=== PATIENT | male | born 1950 | race African-American/Black ===

== ENCOUNTER 2020-05-18 13:58 | Inpatient (IN) ==
[2020-05-18] MEDS ORDERED: ONDANSETRON 4 MG/2 ML VIAL IV PRN (14:31)
[2020-05-18] MEDS: PIPERACILLIN/TAZOBACTAM 3,375 MG in SODIUM CHLORIDE 0.9% 100 ML IV SCH (17:03)
[2020-05-18] MEDS: SODIUM CHLORIDE 0.9% 1,000 ML IV SCH (17:03)
[2020-05-19] MEDS: ACETAMINOPHEN 325 MG TABLET PO PRN (00:10)
[2020-05-19] MEDS: PIPERACILLIN/TAZOBACTAM 3,375 MG in SODIUM CHLORIDE 0.9% 100 ML IV SCH ×3 (00:10→16:20)
[2020-05-19] MEDS: HYDROmorphone 2 MG/1 ML VIAL IV PRN (05:52)
[2020-05-19] MEDS ORDERED: cefOXitin 2,000 MG in SYRINGE 1 EACH IV ONE (06:00)
[2020-05-19 07:15] LABS: Basophils % 0.2 % (0.0-0.8); Hematocrit 44.3 VOL% (42.0-52.0); Hemoglobin 14.6 GM/DL (14.0-18.0); Immature Granulocytes % 0.7 %; Immature Granulocytes Absolute 0.11 #; Lymphocytes # 0.7 10*3/uL (1.4-4.0); Lymphocytes % 4.4 % (21.2-54.2); Mean Corpuscular Volume 89.1 FL (87-102); Mean Platelet Volume 11.8 FL (9.6-12.0); Monocytes % 9.6 % (1.7-12.7); Neutrophils % 85.1 % (38.7-73.9); Platelet Count 141 T/CUMM (130-400); Red Blood Count 4.97 MC/CUMM (3.8-5.5); Red Cell Distribution Width 13.8 % (9.3-17.3); White Blood Count 16.2 T/CUMM (4-12)
[2020-05-19 07:34] LABS: Eosinophils 1 % (0-10); Hypochromasia Slight; Lymphocytes 6 % (20-55); Microcytosis Slight; Platelet Estimate Adequate; Segmented Neutrophils 85 % (50-85); Total Cells Counted 100
[2020-05-19] MEDS ORDERED: TISSUE ADHESIVE 1 EACH APPLICATOR TOP ONE (07:40)
[2020-05-19] MEDS ORDERED: LIDOCAINE 1% 20 ML VIAL ONE (07:40)
[2020-05-19] MEDS ORDERED: BUPIVACAINE MPF 0.25% 30 ML VIAL ONE (07:40)
[2020-05-19] MEDS: SODIUM CHLORIDE 0.9% 1,000 ML IV SCH (07:40)
[2020-05-19 07:42] LABS: Albumin 3.5 G/DL (3.4-5.0); Bilirubin,Total 1.1 MG/DL (0.2-1.0); Calcium 8.8 MG/DL (8.5-10.1); Potassium 3.8 MMOL/L (3.5-5.1); Total Protein 7.8 G/DL (6.4-8.3)
[2020-05-19] MEDS ORDERED: DIAZEPAM 5 MG TABLET PO ONE (07:47)
[2020-05-19] MEDS ORDERED: MIDAZOLAM 2 MG/2 ML VIAL ONE (07:52)
[2020-05-19] MEDS ORDERED: LIDOCAINE 2% 5 ML VIAL ONE (07:52)
[2020-05-19] MEDS ORDERED: fentaNYL 100 MCG/2 ML VIAL ONE (07:52)
[2020-05-19] MEDS ORDERED: ROCURONIUM 50 MG/5 ML VIAL IV ONE (07:52)
[2020-05-19] MEDS ORDERED: propofoL 200 MG/20 ML VIAL IV ONE (07:52)
[2020-05-19] MEDS ORDERED: SEVOFLURANE 1 UNIT/15 MINUTE INH ONE (09:42)
[2020-05-19] MEDS ORDERED: MEPERIDINE 25 MG/1 ML VIAL IV PRN (09:50)
[2020-05-19] MEDS ORDERED: ONDANSETRON 4 MG/2 ML VIAL IV PRN (09:50)
[2020-05-19] MEDS ORDERED: diphenhydrAMINE 50 MG/1 ML VIAL IV PRN (09:50)
[2020-05-19] MEDS ORDERED: HYDROmorphone 2 MG/1 ML VIAL IV PRN (09:50)
[2020-05-19] MEDS ORDERED: PROMETHAZINE INJ 25 MG in SODIUM CHLORIDE 0.9% 50 ML IV PRN (09:50)
[2020-05-19] MEDS: PANTOPRAZOLE 40 MG VIAL IV SCH (10:27)
[2020-05-19] MEDS: LACTATED RINGERS 1,000 ML IV SCH (10:29)
[2020-05-19] MEDS ORDERED: KETOROLAC 30 MG/1 ML VIAL ONE (11:56)
[2020-05-19] MEDS ORDERED: NEOSTIGMINE 10 MG/10 ML VIAL ONE (11:56)
[2020-05-19] MEDS ORDERED: ONDANSETRON 4 MG/2 ML VIAL ONE (11:56)
[2020-05-19] MEDS ORDERED: GLYCOPYRROLATE 0.4 MG/2 ML VIAL ONE (11:56)
[2020-05-19] MEDS: OMEGA 3 ACID ETHYL ESTERS 1 GM CAPSULE PO SCH (21:23)
[2020-05-20] MEDS: LACTATED RINGERS 1,000 ML IV SCH ×3 (00:03→17:18)
[2020-05-20] MEDS: PIPERACILLIN/TAZOBACTAM 3,375 MG in SODIUM CHLORIDE 0.9% 100 ML IV SCH ×3 (00:46→17:15)
[2020-05-20 05:33] LABS: Basophils % 0.2 % (0.0-0.8); Hemoglobin 14.9 GM/DL (14.0-18.0); Immature Granulocytes % 0.5 %; Lymphocytes # 0.8 10*3/uL (1.4-4.0); Lymphocytes % 4.3 % (21.2-54.2); Mean Corpuscular HGB Conc 32.4 GM/DL (32-36); Mean Corpuscular Volume 91.1 FL (87-102); Mean Platelet Volume 11.6 FL (9.6-12.0); Monocytes % 7.3 % (1.7-12.7); Neutrophils % 87.7 % (38.7-73.9); Platelet Count 149 T/CUMM (130-400); Red Blood Count 5.05 MC/CUMM (3.8-5.5); Red Cell Distribution Width 13.9 % (9.3-17.3); White Blood Count 19.1 T/CUMM (4-12)
[2020-05-20 06:09] LABS: Albumin 3.1 G/DL (3.4-5.0); Bilirubin,Total 1.3 MG/DL (0.2-1.0); Calcium 9.3 MG/DL (8.5-10.1); Osmolality,Calculated 277.8 MOS/KG (273-304); Potassium 4.1 MMOL/L (3.5-5.1); Total Protein 7.8 G/DL (6.4-8.3)
[2020-05-20 06:22] LABS: Band Neutrophils 1 % (0-10); Lymphocytes 7 % (20-55); Platelet Estimate Normal; Segmented Neutrophils 87 % (50-85); Total Cells Counted 100
[2020-05-20] MEDS: OMEGA 3 ACID ETHYL ESTERS 1 GM CAPSULE PO SCH ×2 (09:20→21:08)
[2020-05-20] MEDS: MULTIVITAMIN (CENTRUM) TABLET PO SCH (09:21)
[2020-05-20] MEDS: PANTOPRAZOLE 40 MG VIAL IV SCH (09:21)
[2020-05-20] MEDS ORDERED: KETOROLAC 15 MG/1 ML VIAL IV PRN (10:30)
[2020-05-20] MEDS: ONDANSETRON 4 MG/2 ML VIAL IV PRN (21:36)
[2020-05-21] MEDS: PIPERACILLIN/TAZOBACTAM 3,375 MG in SODIUM CHLORIDE 0.9% 100 ML IV SCH ×3 (00:33→16:25)
[2020-05-21] MEDS: LACTATED RINGERS 1,000 ML IV SCH (00:33)
[2020-05-21] MEDS: HYDROmorphone 2 MG/1 ML VIAL IV PRN ×3 (01:58→20:11)
[2020-05-21 05:42] LABS: Basophils % 0.2 % (0.0-0.8); Hematocrit 40.8 VOL% (42.0-52.0); Hemoglobin 13.3 GM/DL (14.0-18.0); Immature Granulocytes % 0.9 %; Immature Granulocytes Absolute 0.16 #; Lymphocytes # 0.8 10*3/uL (1.4-4.0); Lymphocytes % 4.3 % (21.2-54.2); Mean Corpuscular HGB Conc 32.6 GM/DL (32-36); Mean Corpuscular Volume 89.9 FL (87-102); Mean Platelet Volume 11.7 FL (9.6-12.0); Monocytes % 7.7 % (1.7-12.7); Neutrophils % 86.9 % (38.7-73.9); Platelet Count 156 T/CUMM (130-400); Red Blood Count 4.54 MC/CUMM (3.8-5.5); Red Cell Distribution Width 13.7 % (9.3-17.3); White Blood Count 18.7 T/CUMM (4-12)
[2020-05-21 06:09] LABS: Albumin 2.5 G/DL (3.4-5.0); Bilirubin,Total 0.9 MG/DL (0.2-1.0); Calcium 9.1 MG/DL (8.5-10.1); Osmolality,Calculated 286.4 MOS/KG (273-304); Potassium 3.8 MMOL/L (3.5-5.1); Total Protein 7.1 G/DL (6.4-8.3)
[2020-05-21 06:10] LABS: Band Neutrophils 1 % (0-10); Lymphocytes 3 % (20-55); Platelet Estimate Adequate; Segmented Neutrophils 87 % (50-85); Total Cells Counted 100
[2020-05-21] MEDS: DEXT 5% NACL 0.45% KCL 40 MEQ 40 MEQ/1,000 ML BAG IV SCH ×2 (08:48→16:25)
[2020-05-21] MEDS: MULTIVITAMIN (CENTRUM) TABLET PO SCH (09:07)
[2020-05-21] MEDS: OMEGA 3 ACID ETHYL ESTERS 1 GM CAPSULE PO SCH ×2 (09:07→20:16)
[2020-05-21] MEDS: PANTOPRAZOLE 40 MG VIAL IV SCH (09:07)
[2020-05-21] MEDS: ENOXAPARIN 40 MG/0.4 ML SYRINGE SUBCUT SCH (09:08)
[2020-05-21] MEDS: ACETAMINOPHEN 325 MG TABLET PO PRN (20:11)
[2020-05-22] MEDS: DEXT 5% NACL 0.45% KCL 40 MEQ 40 MEQ/1,000 ML BAG IV SCH ×3 (00:12→16:53)
[2020-05-22] MEDS: PIPERACILLIN/TAZOBACTAM 3,375 MG in SODIUM CHLORIDE 0.9% 100 ML IV SCH ×3 (00:12→16:15)
[2020-05-22] MEDS: HYDROmorphone 2 MG/1 ML VIAL IV PRN ×4 (03:59→20:22)
[2020-05-22 06:10] LABS: Basophils % 0.3 % (0.0-0.8); Eosinophils % 0.2 % (0.00-10.9); Hematocrit 39.2 VOL% (42.0-52.0); Hemoglobin 12.6 GM/DL (14.0-18.0); Immature Granulocytes % 0.7 %; Lymphocytes # 0.9 10*3/uL (1.4-4.0); Lymphocytes % 6.1 % (21.2-54.2); Mean Corpuscular HGB Conc 32.1 GM/DL (32-36); Mean Corpuscular Volume 91.2 FL (87-102); Mean Platelet Volume 10.9 FL (9.6-12.0); Monocytes % 9.6 % (1.7-12.7); Neutrophils % 83.1 % (38.7-73.9); Platelet Count 196 T/CUMM (130-400); Red Cell Distribution Width 13.9 % (9.3-17.3)
[2020-05-22 06:23] LABS: Calcium 8.8 MG/DL (8.5-10.1); Osmolality,Calculated 282.5 MOS/KG (273-304); Potassium 4.7 MMOL/L (3.5-5.1)
[2020-05-22] MEDS: MULTIVITAMIN (CENTRUM) TABLET PO SCH (08:54)
[2020-05-22] MEDS: PANTOPRAZOLE 40 MG VIAL IV SCH (08:55)
[2020-05-22] MEDS: OMEGA 3 ACID ETHYL ESTERS 1 GM CAPSULE PO SCH ×2 (08:55→20:21)
[2020-05-22] MEDS: ENOXAPARIN 40 MG/0.4 ML SYRINGE SUBCUT SCH (08:55)
[2020-05-22] MEDS ORDERED: METOCLOPRAMIDE 10 MG/2 ML VIAL IV ONE (11:00)
[2020-05-22] MEDS: ONDANSETRON 4 MG/2 ML VIAL IV PRN (20:21)
[2020-05-23] MEDS: DEXT 5% NACL 0.45% KCL 40 MEQ 40 MEQ/1,000 ML BAG IV SCH ×3 (00:46→16:20)
[2020-05-23] MEDS: PIPERACILLIN/TAZOBACTAM 3,375 MG in SODIUM CHLORIDE 0.9% 100 ML IV SCH ×3 (02:11→16:21)
[2020-05-23] MEDS: HYDROmorphone 2 MG/1 ML VIAL IV PRN ×4 (03:39→22:34)
[2020-05-23 04:22] LABS: Basophils # 0.1 10*3/uL (0.0-0.2); Basophils % 0.4 % (0.0-0.8); Eosinophils # 0.1 10*3/uL (0.0-0.87); Hematocrit 38.1 VOL% (42.0-52.0); Hemoglobin 12.6 GM/DL (14.0-18.0); Immature Granulocytes % 0.8 %; Immature Granulocytes Absolute 0.09 #; Lymphocytes # 1.3 10*3/uL (1.4-4.0); Lymphocytes % 11.3 % (21.2-54.2); Mean Corpuscular HGB Conc 33.1 GM/DL (32-36); Mean Corpuscular Volume 90.9 FL (87-102); Mean Platelet Volume 10.4 FL (9.6-12.0); Monocytes % 12.2 % (1.7-12.7); Neutrophils % 74.3 % (38.7-73.9); Platelet Count 190 T/CUMM (130-400); Red Blood Count 4.19 MC/CUMM (3.8-5.5); White Blood Count 11.7 T/CUMM (4-12)
[2020-05-23 04:40] LABS: Calcium 8.6 MG/DL (8.5-10.1); Osmolality,Calculated 284.3 MOS/KG (273-304); Potassium 4.4 MMOL/L (3.5-5.1)
[2020-05-23 05:00] LABS: Band Neutrophils 2 % (0-10); Eosinophils 2 % (0-10); Lymphocytes 11 % (20-55); Segmented Neutrophils 71 % (50-85); Total Cells Counted 100
[2020-05-23 05:01] LABS: Anisocytosis 1+; Hypochromasia 2+; Macrocytosis 1+; Platelet Estimate Normal; Polychromasia 2+
[2020-05-23] MEDS: PANTOPRAZOLE 40 MG VIAL IV SCH (08:43)
[2020-05-23] MEDS: MULTIVITAMIN (CENTRUM) TABLET PO SCH (09:19)
[2020-05-23] MEDS: OMEGA 3 ACID ETHYL ESTERS 1 GM CAPSULE PO SCH ×2 (09:19→22:37)
[2020-05-23] MEDS: ENOXAPARIN 40 MG/0.4 ML SYRINGE SUBCUT SCH (09:20)
[2020-05-23] MEDS: ONDANSETRON 4 MG/2 ML VIAL IV PRN (22:34)
[2020-05-24] MEDS: PIPERACILLIN/TAZOBACTAM 3,375 MG in SODIUM CHLORIDE 0.9% 100 ML IV SCH ×3 (01:18→16:25)
[2020-05-24] MEDS: ONDANSETRON 4 MG/2 ML VIAL IV PRN (05:01)
[2020-05-24] MEDS: HYDROmorphone 2 MG/1 ML VIAL IV PRN ×4 (05:01→19:53)
[2020-05-24] MEDS: DEXT 5% NACL 0.45% KCL 40 MEQ 40 MEQ/1,000 ML BAG IV SCH ×3 (05:06→20:02)
[2020-05-24] MEDS: ENOXAPARIN 40 MG/0.4 ML SYRINGE SUBCUT SCH (09:34)
[2020-05-24] MEDS: OMEGA 3 ACID ETHYL ESTERS 1 GM CAPSULE PO SCH ×2 (09:34→20:02)
[2020-05-24] MEDS: PANTOPRAZOLE 40 MG VIAL IV SCH (09:35)
[2020-05-24] MEDS: MULTIVITAMIN (CENTRUM) TABLET PO SCH (09:36)
[2020-05-25] MEDS: ONDANSETRON 4 MG/2 ML VIAL IV PRN ×2 (01:07→15:38)
[2020-05-25] MEDS: HYDROmorphone 2 MG/1 ML VIAL IV PRN ×5 (01:09→20:07)
[2020-05-25] MEDS: PIPERACILLIN/TAZOBACTAM 3,375 MG in SODIUM CHLORIDE 0.9% 100 ML IV SCH ×3 (01:16→16:58)
[2020-05-25] MEDS: DEXT 5% NACL 0.45% KCL 40 MEQ 40 MEQ/1,000 ML BAG IV SCH ×3 (04:13→20:07)
[2020-05-25] MEDS: MULTIVITAMIN (CENTRUM) TABLET PO SCH (09:47)
[2020-05-25] MEDS: OMEGA 3 ACID ETHYL ESTERS 1 GM CAPSULE PO SCH ×2 (09:47→20:28)
[2020-05-25] MEDS: ENOXAPARIN 40 MG/0.4 ML SYRINGE SUBCUT SCH (09:51)
[2020-05-25] MEDS: PANTOPRAZOLE 40 MG VIAL IV SCH (09:52)
[2020-05-26] MEDS: PIPERACILLIN/TAZOBACTAM 3,375 MG in SODIUM CHLORIDE 0.9% 100 ML IV SCH ×3 (00:55→18:03)
[2020-05-26] MEDS: HYDROmorphone 2 MG/1 ML VIAL IV PRN ×3 (01:09→21:24)
[2020-05-26] MEDS: DEXT 5% NACL 0.45% KCL 40 MEQ 40 MEQ/1,000 ML BAG IV SCH (04:12)
[2020-05-26 05:10] LABS: Basophils % 0.3 % (0.0-0.8); Eosinophils # 0.2 10*3/uL (0.0-0.87); Eosinophils % 1.1 % (0.00-10.9); Hematocrit 37.8 VOL% (42.0-52.0); Hemoglobin 12.5 GM/DL (14.0-18.0); Immature Granulocytes % 2.1 %; Immature Granulocytes Absolute 0.31 #; Lymphocytes # 1.5 10*3/uL (1.4-4.0); Lymphocytes % 10.4 % (21.2-54.2); Mean Corpuscular HGB Conc 33.1 GM/DL (32-36); Mean Corpuscular Volume 88.7 FL (87-102); Mean Platelet Volume 9.6 FL (9.6-12.0); Monocytes % 12.6 % (1.7-12.7); Neutrophils % 73.5 % (38.7-73.9); Platelet Count 284 T/CUMM (130-400); Red Blood Count 4.26 MC/CUMM (3.8-5.5); Red Cell Distribution Width 14.4 % (9.3-17.3); White Blood Count 14.5 T/CUMM (4-12)
[2020-05-26 05:35] LABS: Calcium 9.6 MG/DL (8.5-10.1); Osmolality,Calculated 262.7 MOS/KG (273-304); Potassium 4.9 MMOL/L (3.5-5.1)
[2020-05-26] MEDS: MULTIVITAMIN (CENTRUM) TABLET PO SCH (08:28)
[2020-05-26] MEDS: OMEGA 3 ACID ETHYL ESTERS 1 GM CAPSULE PO SCH ×2 (08:28→21:00)
[2020-05-26] MEDS: ENOXAPARIN 40 MG/0.4 ML SYRINGE SUBCUT SCH (08:28)
[2020-05-26 10:26] LABS: INR 1.1; PT Patient Result 12.1 SECS (9.8-11.9)
[2020-05-26] MEDS: PANTOPRAZOLE 40 MG VIAL IV SCH (10:39)
[2020-05-26] MEDS ORDERED: DIAZEPAM 5 MG TABLET PO ONE (12:35)
[2020-05-26] MEDS ORDERED: MIDAZOLAM 2 MG/2 ML VIAL IV ONE (12:35)
[2020-05-26] MEDS ORDERED: fentaNYL 100 MCG/2 ML VIAL IV ONE (12:35)
[2020-05-26] MEDS ORDERED: SODIUM CHLORIDE 0.45% 1,000 ML IV SCH (13:00)
[2020-05-26] MEDS ORDERED: ZINC/COPPER/MANGANESE/SELENIUM 1 ML in AMINO ACIDS/DEXT/LYTES 5-15% 2,000 ML IV SCH (17:00)
[2020-05-26] MEDS: FAT EMULSION 20% 250 ML IV SCH (18:46)
[2020-05-27] MEDS: PIPERACILLIN/TAZOBACTAM 3,375 MG in SODIUM CHLORIDE 0.9% 100 ML IV SCH ×3 (01:07→16:45)
[2020-05-27] MEDS: HYDROmorphone 2 MG/1 ML VIAL IV PRN ×5 (01:36→20:55)
[2020-05-27] MEDS: ONDANSETRON 4 MG/2 ML VIAL IV PRN ×2 (05:34→21:02)
[2020-05-27 05:39] LABS: Basophils % 0.3 % (0.0-0.8); Eosinophils # 0.1 10*3/uL (0.0-0.87); Eosinophils % 1.2 % (0.00-10.9); Hematocrit 35.2 VOL% (42.0-52.0); Hemoglobin 12.1 GM/DL (14.0-18.0); Immature Granulocytes % 1.5 %; Immature Granulocytes Absolute 0.18 #; Lymphocytes # 1.3 10*3/uL (1.4-4.0); Mean Corpuscular HGB Conc 34.4 GM/DL (32-36); Mean Corpuscular Volume 86.9 FL (87-102); Mean Platelet Volume 9.9 FL (9.6-12.0); Monocytes % 12.4 % (1.7-12.7); Neutrophils % 73.6 % (38.7-73.9); Platelet Count 282 T/CUMM (130-400); Red Blood Count 4.05 MC/CUMM (3.8-5.5); White Blood Count 12.1 T/CUMM (4-12)
[2020-05-27 05:56] LABS: Calcium 9.2 MG/DL (8.5-10.1); Osmolality,Calculated 271.1 MOS/KG (273-304); Potassium 3.9 MMOL/L (3.5-5.1)
[2020-05-27 05:57] LABS: Calcium 9.1 MG/DL (8.5-10.1); Potassium 3.9 MMOL/L (3.5-5.1)
[2020-05-27] MEDS: DEXT 5% NACL 0.45% KCL 40 MEQ 40 MEQ/1,000 ML BAG IV SCH ×2 (07:50→10:01)
[2020-05-27] MEDS: ALUMINUM/MAGNES/SIMETH MAX STR 30 ML UDCUP NG SCH ×3 (08:52→22:42)
[2020-05-27] MEDS: MULTIVITAMIN (CENTRUM) TABLET PO SCH (08:52)
[2020-05-27] MEDS: OMEGA 3 ACID ETHYL ESTERS 1 GM CAPSULE PO SCH ×2 (08:52→22:42)
[2020-05-27] MEDS: PANTOPRAZOLE 40 MG VIAL IV SCH (08:52)
[2020-05-27] MEDS: ENOXAPARIN 40 MG/0.4 ML SYRINGE SUBCUT SCH (08:53)
[2020-05-27] MEDS: FAT EMULSION 20% 250 ML IV SCH (16:45)
[2020-05-27] MEDS: ZINC/COPPER/MANGANESE/SELENIUM 1 ML, MULTIVITAMIN INJ 10 ML in AMINO ACIDS/DEXT/LYTES 5... IV SCH (21:08)
[2020-05-28] MEDS: HYDROmorphone 2 MG/1 ML VIAL IV PRN ×5 (01:10→20:35)
[2020-05-28] MEDS: ONDANSETRON 4 MG/2 ML VIAL IV PRN ×3 (01:13→20:37)
[2020-05-28] MEDS: PIPERACILLIN/TAZOBACTAM 3,375 MG in SODIUM CHLORIDE 0.9% 100 ML IV SCH ×3 (01:17→17:40)
[2020-05-28] MEDS: ALUMINUM/MAGNES/SIMETH MAX STR 30 ML UDCUP NG SCH ×4 (03:54→22:09)
[2020-05-28 06:01] LABS: Basophils % 0.2 % (0.0-0.8); Eosinophils # 0.2 10*3/uL (0.0-0.87); Eosinophils % 1.6 % (0.00-10.9); Hematocrit 36.6 VOL% (42.0-52.0); Hemoglobin 12.1 GM/DL (14.0-18.0); Immature Granulocytes % 1.6 %; Immature Granulocytes Absolute 0.18 #; Lymphocytes # 0.9 10*3/uL (1.4-4.0); Lymphocytes % 8.3 % (21.2-54.2); Mean Corpuscular HGB Conc 33.1 GM/DL (32-36); Mean Corpuscular Volume 88.6 FL (87-102); Mean Platelet Volume 9.7 FL (9.6-12.0); Neutrophils % 78.3 % (38.7-73.9); Platelet Count 270 T/CUMM (130-400); Red Blood Count 4.13 MC/CUMM (3.8-5.5); Red Cell Distribution Width 14.1 % (9.3-17.3); White Blood Count 11.3 T/CUMM (4-12)
[2020-05-28 06:24] LABS: Band Neutrophils 1 % (0-10); Eosinophils 1 % (0-10); Lymphocytes 13 % (20-55); Platelet Estimate Adequate; Segmented Neutrophils 72 % (50-85); Total Cells Counted 100
[2020-05-28 06:25] LABS: Hypochromasia 1+; Microcytosis 1+
[2020-05-28 06:29] LABS: Calcium 9.2 MG/DL (8.5-10.1); Osmolality,Calculated 272.1 MOS/KG (273-304); Potassium 4.3 MMOL/L (3.5-5.1)
[2020-05-28] MEDS: ENOXAPARIN 40 MG/0.4 ML SYRINGE SUBCUT SCH ×2 (09:32→09:33)
[2020-05-28] MEDS: MULTIVITAMIN (CENTRUM) TABLET PO SCH (09:32)
[2020-05-28] MEDS: OMEGA 3 ACID ETHYL ESTERS 1 GM CAPSULE PO SCH ×2 (09:33→22:08)
[2020-05-28] MEDS: PANTOPRAZOLE 40 MG VIAL IV SCH (09:33)
[2020-05-28] MEDS: ZINC/COPPER/MANGANESE/SELENIUM 1 ML in AMINO ACIDS/DEXT/LYTES 5-15% 2,000 ML IV SCH (17:40)
[2020-05-28] MEDS: FAT EMULSION 20% 250 ML IV SCH (17:40)
[2020-05-29] MEDS: PIPERACILLIN/TAZOBACTAM 3,375 MG in SODIUM CHLORIDE 0.9% 100 ML IV SCH ×3 (00:17→16:39)
[2020-05-29] MEDS: HYDROmorphone 2 MG/1 ML VIAL IV PRN ×4 (00:55→20:16)
[2020-05-29] MEDS: ONDANSETRON 4 MG/2 ML VIAL IV PRN ×2 (00:57→20:17)
[2020-05-29] MEDS: ALUMINUM/MAGNES/SIMETH MAX STR 30 ML UDCUP NG SCH ×4 (03:28→22:00)
[2020-05-29 06:05] LABS: Basophils # 0.1 10*3/uL (0.0-0.2); Basophils % 0.5 % (0.0-0.8); Eosinophils # 0.3 10*3/uL (0.0-0.87); Eosinophils % 2.1 % (0.00-10.9); Hematocrit 38.3 VOL% (42.0-52.0); Hemoglobin 12.7 GM/DL (14.0-18.0); Immature Granulocytes % 2.1 %; Immature Granulocytes Absolute 0.32 #; Lymphocytes # 1.3 10*3/uL (1.4-4.0); Lymphocytes % 8.7 % (21.2-54.2); Mean Corpuscular HGB Conc 33.2 GM/DL (32-36); Mean Corpuscular Volume 89.1 FL (87-102); Mean Platelet Volume 10.2 FL (9.6-12.0); Monocytes % 7.5 % (1.7-12.7); Neutrophils % 79.1 % (38.7-73.9); Platelet Count 285 T/CUMM (130-400); White Blood Count 15.4 T/CUMM (4-12)
[2020-05-29 06:27] LABS: Calcium 9.2 MG/DL (8.5-10.1)
[2020-05-29] MEDS: PANTOPRAZOLE 40 MG VIAL IV SCH (08:14)
[2020-05-29] MEDS: MULTIVITAMIN (CENTRUM) TABLET PO SCH (09:03)
[2020-05-29] MEDS: ENOXAPARIN 40 MG/0.4 ML SYRINGE SUBCUT SCH (09:04)
[2020-05-29] MEDS: OMEGA 3 ACID ETHYL ESTERS 1 GM CAPSULE PO SCH ×2 (09:04→22:00)
[2020-05-29] MEDS: ZINC/COPPER/MANGANESE/SELENIUM 1 ML, MULTIVITAMIN INJ 10 ML in AMINO ACIDS/DEXT/LYTES 5... IV SCH ×2 (14:03→16:16)
[2020-05-29] MEDS: FAT EMULSION 20% 250 ML IV SCH (16:39)
[2020-05-30] MEDS: HYDROmorphone 2 MG/1 ML VIAL IV PRN ×5 (01:49→21:11)
[2020-05-30] MEDS: PIPERACILLIN/TAZOBACTAM 3,375 MG in SODIUM CHLORIDE 0.9% 100 ML IV SCH ×3 (01:51→16:47)
[2020-05-30] MEDS: ALUMINUM/MAGNES/SIMETH MAX STR 30 ML UDCUP NG SCH ×4 (03:03→21:29)
[2020-05-30] MEDS: ONDANSETRON 4 MG/2 ML VIAL IV PRN ×2 (06:21→21:12)
[2020-05-30 06:39] LABS: Basophils # 0.1 10*3/uL (0.0-0.2); Basophils % 0.6 % (0.0-0.8); Eosinophils # 0.3 10*3/uL (0.0-0.87); Eosinophils % 2.3 % (0.00-10.9); Hematocrit 36.7 VOL% (42.0-52.0); Hemoglobin 11.9 GM/DL (14.0-18.0); Immature Granulocytes Absolute 0.27 #; Lymphocytes # 1.3 10*3/uL (1.4-4.0); Lymphocytes % 9.5 % (21.2-54.2); Mean Corpuscular HGB Conc 32.4 GM/DL (32-36); Mean Corpuscular Volume 90.8 FL (87-102); Mean Platelet Volume 10.3 FL (9.6-12.0); Monocytes % 7.7 % (1.7-12.7); Neutrophils % 77.9 % (38.7-73.9); Platelet Count 292 T/CUMM (130-400); Red Blood Count 4.04 MC/CUMM (3.8-5.5); Red Cell Distribution Width 14.1 % (9.3-17.3); White Blood Count 13.6 T/CUMM (4-12)
[2020-05-30 07:05] LABS: Calcium 9.2 MG/DL (8.5-10.1); Osmolality,Calculated 273.1 MOS/KG (273-304); Potassium 4.4 MMOL/L (3.5-5.1)
[2020-05-30 07:17] LABS: Albumin 2.5 G/DL (3.4-5.0); Bilirubin,Direct 0.7 MG/DL (0.0-0.20); Bilirubin,Total 1.7 MG/DL (0.2-1.0); Total Protein 7.6 G/DL (6.4-8.3)
[2020-05-30] MEDS: PANTOPRAZOLE 40 MG VIAL IV SCH (08:22)
[2020-05-30 08:29] LABS: Anisocytosis 1+; Band Neutrophils 2 % (0-10); Eosinophils 2 % (0-10); Giant Platelets Few; Hypochromasia 1+; Lymphocytes 13 % (20-55); Platelet Estimate Normal; Segmented Neutrophils 78 % (50-85); Total Cells Counted 100
[2020-05-30] MEDS: ENOXAPARIN 40 MG/0.4 ML SYRINGE SUBCUT SCH (08:33)
[2020-05-30] MEDS: OMEGA 3 ACID ETHYL ESTERS 1 GM CAPSULE PO SCH ×2 (08:33→21:29)
[2020-05-30] MEDS: MULTIVITAMIN (CENTRUM) TABLET PO SCH (08:33)
[2020-05-30] MEDS: ZINC/COPPER/MANGANESE/SELENIUM 1 ML in AMINO ACIDS/DEXT/LYTES 5-15% 2,000 ML IV SCH ×2 (11:51→16:02)
[2020-05-30] MEDS: FAT EMULSION 20% 250 ML IV SCH (16:47)
[2020-05-31] MEDS: PIPERACILLIN/TAZOBACTAM 3,375 MG in SODIUM CHLORIDE 0.9% 100 ML IV SCH ×3 (00:46→16:42)
[2020-05-31] MEDS: HYDROmorphone 2 MG/1 ML VIAL IV PRN ×4 (03:32→20:13)
[2020-05-31] MEDS: ALUMINUM/MAGNES/SIMETH MAX STR 30 ML UDCUP NG SCH ×4 (03:32→20:11)
[2020-05-31] MEDS: ONDANSETRON 4 MG/2 ML VIAL IV PRN ×2 (03:33→20:11)
[2020-05-31 06:50] LABS: Basophils # 0.1 10*3/uL (0.0-0.2); Basophils % 0.5 % (0.0-0.8); Eosinophils # 0.3 10*3/uL (0.0-0.87); Eosinophils % 2.6 % (0.00-10.9); Hematocrit 32.4 VOL% (42.0-52.0); Hemoglobin 10.6 GM/DL (14.0-18.0); Immature Granulocytes % 1.3 %; Immature Granulocytes Absolute 0.14 #; Lymphocytes # 1.1 10*3/uL (1.4-4.0); Lymphocytes % 10.2 % (21.2-54.2); Mean Corpuscular HGB Conc 32.7 GM/DL (32-36); Mean Corpuscular Volume 90.3 FL (87-102); Mean Platelet Volume 10.6 FL (9.6-12.0); Neutrophils % 76.4 % (38.7-73.9); Platelet Count 283 T/CUMM (130-400); Red Blood Count 3.59 MC/CUMM (3.8-5.5); Red Cell Distribution Width 13.9 % (9.3-17.3); White Blood Count 11.1 T/CUMM (4-12)
[2020-05-31 07:05] LABS: Calcium 8.9 MG/DL (8.5-10.1); Potassium 4.2 MMOL/L (3.5-5.1)
[2020-05-31 07:08] LABS: Albumin 2.2 G/DL (3.4-5.0); Bilirubin,Direct 0.52 MG/DL (0.0-0.20); Bilirubin,Indirect 1.1 MG/DL (0.0-1.0); Bilirubin,Total 1.6 MG/DL (0.2-1.0); Total Protein 6.7 G/DL (6.4-8.3)
[2020-05-31] MEDS: PANTOPRAZOLE 40 MG VIAL IV SCH (09:01)
[2020-05-31] MEDS: MULTIVITAMIN (CENTRUM) TABLET PO SCH (09:54)
[2020-05-31] MEDS: OMEGA 3 ACID ETHYL ESTERS 1 GM CAPSULE PO SCH ×2 (09:54→20:11)
[2020-05-31] MEDS: ENOXAPARIN 40 MG/0.4 ML SYRINGE SUBCUT SCH (09:54)
[2020-05-31] MEDS: ZINC/COPPER/MANGANESE/SELENIUM 1 ML in AMINO ACIDS/DEXT/LYTES 5-15% 2,000 ML IV SCH ×2 (09:57→16:07)
[2020-05-31] MEDS: FAT EMULSION 20% 250 ML IV SCH (16:41)
[2020-06-01] MEDS: PIPERACILLIN/TAZOBACTAM 3,375 MG in SODIUM CHLORIDE 0.9% 100 ML IV SCH ×3 (01:15→15:59)
[2020-06-01] MEDS: HYDROmorphone 2 MG/1 ML VIAL IV PRN ×4 (03:10→22:34)
[2020-06-01] MEDS: ONDANSETRON 4 MG/2 ML VIAL IV PRN ×3 (03:11→16:07)
[2020-06-01] MEDS: ALUMINUM/MAGNES/SIMETH MAX STR 30 ML UDCUP NG SCH ×4 (03:12→22:27)
[2020-06-01] MEDS ORDERED: LYTES IV PRN (06:00)
[2020-06-01] MEDS ORDERED: DEXT IV PRN (06:00)
[2020-06-01] MEDS ORDERED: AMINO ACIDS IV PRN (06:00)
[2020-06-01 06:05] LABS: Basophils # 0.1 10*3/uL (0.0-0.2); Basophils % 0.8 % (0.0-0.8); Eosinophils # 0.3 10*3/uL (0.0-0.87); Eosinophils % 2.5 % (0.00-10.9); Hemoglobin 10.8 GM/DL (14.0-18.0); Immature Granulocytes % 1.6 %; Immature Granulocytes Absolute 0.16 #; Lymphocytes # 1.1 10*3/uL (1.4-4.0); Lymphocytes % 11.1 % (21.2-54.2); Mean Corpuscular HGB Conc 32.7 GM/DL (32-36); Mean Corpuscular Volume 89.7 FL (87-102); Mean Platelet Volume 10.5 FL (9.6-12.0); Monocytes % 9.8 % (1.7-12.7); Neutrophils % 74.2 % (38.7-73.9); Platelet Count 286 T/CUMM (130-400); Red Blood Count 3.68 MC/CUMM (3.8-5.5); Red Cell Distribution Width 13.9 % (9.3-17.3); White Blood Count 10.3 T/CUMM (4-12)
[2020-06-01 06:39] LABS: Albumin 2.5 G/DL (3.4-5.0); Bilirubin,Total 1.4 MG/DL (0.2-1.0); Calcium 9.2 MG/DL (8.5-10.1); Osmolality,Calculated 277.8 MOS/KG (273-304); Potassium 4.9 MMOL/L (3.5-5.1); Total Protein 7.2 G/DL (6.4-8.3)
[2020-06-01] MEDS: MULTIVITAMIN (CENTRUM) TABLET PO SCH (09:11)
[2020-06-01] MEDS: OMEGA 3 ACID ETHYL ESTERS 1 GM CAPSULE PO SCH ×2 (09:11→22:26)
[2020-06-01] MEDS: PANTOPRAZOLE 40 MG VIAL IV SCH (09:11)
[2020-06-01] MEDS: ENOXAPARIN 40 MG/0.4 ML SYRINGE SUBCUT SCH (09:15)
[2020-06-01] MEDS: FAT EMULSION 20% 250 ML IV SCH (15:59)
[2020-06-01] MEDS: ZINC/COPPER/MANGANESE/SELENIUM 1 ML, MULTIVITAMIN INJ 10 ML in AMINO ACIDS/DEXT/LYTES 5... IV SCH (16:06)
[2020-06-02] MEDS: PIPERACILLIN/TAZOBACTAM 3,375 MG in SODIUM CHLORIDE 0.9% 100 ML IV SCH ×3 (01:55→17:01)
[2020-06-02] MEDS: ONDANSETRON 4 MG/2 ML VIAL IV PRN ×4 (03:57→18:30)
[2020-06-02] MEDS: HYDROmorphone 2 MG/1 ML VIAL IV PRN ×4 (04:00→18:29)
[2020-06-02] MEDS: ALUMINUM/MAGNES/SIMETH MAX STR 30 ML UDCUP NG SCH ×4 (04:03→22:11)
[2020-06-02] MEDS: PANTOPRAZOLE 40 MG VIAL IV SCH (08:23)
[2020-06-02] MEDS: OMEGA 3 ACID ETHYL ESTERS 1 GM CAPSULE PO SCH ×2 (08:24→22:11)
[2020-06-02] MEDS: MULTIVITAMIN (CENTRUM) TABLET PO SCH (08:26)
[2020-06-02] MEDS: ENOXAPARIN 40 MG/0.4 ML SYRINGE SUBCUT SCH (08:28)
[2020-06-02] MEDS: FAT EMULSION 20% 250 ML IV SCH (17:00)
[2020-06-02] MEDS: ZINC/COPPER/MANGANESE/SELENIUM 1 ML in AMINO ACIDS/DEXT/LYTES 5-15% 2,000 ML IV SCH (17:00)
[2020-06-03] MEDS: HYDROmorphone 2 MG/1 ML VIAL IV PRN (00:43)
[2020-06-03] MEDS: ONDANSETRON 4 MG/2 ML VIAL IV PRN ×2 (00:49→09:00)
[2020-06-03] MEDS: PIPERACILLIN/TAZOBACTAM 3,375 MG in SODIUM CHLORIDE 0.9% 100 ML IV SCH ×2 (00:52→09:00)
[2020-06-03] MEDS: ALUMINUM/MAGNES/SIMETH MAX STR 30 ML UDCUP NG SCH ×2 (04:18→08:57)
[2020-06-03 05:55] LABS: Basophils % 0.4 % (0.0-0.8); Eosinophils # 0.1 10*3/uL (0.0-0.87); Eosinophils % 1.4 % (0.00-10.9); Hematocrit 37.6 VOL% (42.0-52.0); Hemoglobin 11.6 GM/DL (14.0-18.0); Immature Granulocytes % 0.7 %; Immature Granulocytes Absolute 0.05 #; Lymphocytes # 0.8 10*3/uL (1.4-4.0); Lymphocytes % 10.5 % (21.2-54.2); Mean Corpuscular HGB Conc 30.9 GM/DL (32-36); Mean Corpuscular Volume 94.7 FL (87-102); Mean Platelet Volume 10.6 FL (9.6-12.0); Monocytes % 11.8 % (1.7-12.7); Neutrophils % 75.2 % (38.7-73.9); Platelet Count 348 T/CUMM (130-400); Red Blood Count 3.97 MC/CUMM (3.8-5.5); Red Cell Distribution Width 13.7 % (9.3-17.3); White Blood Count 7.4 T/CUMM (4-12)
[2020-06-03 06:11] LABS: Albumin 2.7 G/DL (3.4-5.0); Bilirubin,Total 1.2 MG/DL (0.2-1.0); Calcium 9.4 MG/DL (8.5-10.1); Osmolality,Calculated 284.7 MOS/KG (273-304); Potassium 4.9 MMOL/L (3.5-5.1); Total Protein 7.7 G/DL (6.4-8.3)
[2020-06-03] MEDS: ENOXAPARIN 40 MG/0.4 ML SYRINGE SUBCUT SCH (08:57)
[2020-06-03] MEDS: MULTIVITAMIN (CENTRUM) TABLET PO SCH (08:57)
[2020-06-03] MEDS: OMEGA 3 ACID ETHYL ESTERS 1 GM CAPSULE PO SCH ×2 (08:57→23:48)
[2020-06-03] MEDS: PANTOPRAZOLE 40 MG VIAL IV SCH (09:00)
[2020-06-03] MEDS: ZINC/COPPER/MANGANESE/SELENIUM 1 ML, MULTIVITAMIN INJ 10 ML in AMINO ACIDS/DEXT/LYTES 5... IV SCH ×2 (13:24→19:00)
[2020-06-03] MEDS: METOCLOPRAMIDE 10 MG/2 ML VIAL IV SCH ×2 (15:04→21:17)
[2020-06-03] MEDS: FAT EMULSION 20% 250 ML IV SCH (16:45)
[2020-06-03] MEDS ORDERED: ERTAPENEM 1,000 MG in SODIUM CHLORIDE 0.9% 100 ML IV SCH (21:00)
[2020-06-04] MEDS: METOCLOPRAMIDE 10 MG/2 ML VIAL IV SCH ×4 (05:00→21:36)
[2020-06-04 07:23] LABS: Calcium 9.4 MG/DL (8.5-10.1); Osmolality,Calculated 278.8 MOS/KG (273-304); Potassium 4.1 MMOL/L (3.5-5.1)
[2020-06-04] MEDS: PANTOPRAZOLE 40 MG VIAL IV SCH (08:48)
[2020-06-04] MEDS: MULTIVITAMIN (CENTRUM) TABLET PO SCH (09:33)
[2020-06-04] MEDS: ZINC/COPPER/MANGANESE/SELENIUM 1 ML in AMINO ACIDS/DEXT/LYTES 5-15% 2,000 ML IV SCH (09:33)
[2020-06-04] MEDS: OMEGA 3 ACID ETHYL ESTERS 1 GM CAPSULE PO SCH ×2 (09:33→21:36)
[2020-06-04] MEDS: ENOXAPARIN 40 MG/0.4 ML SYRINGE SUBCUT SCH (10:26)
[2020-06-04] MEDS: FAT EMULSION 20% 250 ML IV SCH (17:55)
[2020-06-04] MEDS: ONDANSETRON 4 MG/2 ML VIAL IV PRN (21:35)
[2020-06-05] MEDS: METOCLOPRAMIDE 10 MG/2 ML VIAL IV SCH ×2 (02:32→09:15)
[2020-06-05] MEDS: ZINC/COPPER/MANGANESE/SELENIUM 1 ML, MULTIVITAMIN INJ 10 ML in AMINO ACIDS/DEXT/LYTES 5... IV SCH (05:35)
[2020-06-05] MEDS: MULTIVITAMIN (CENTRUM) TABLET PO SCH (09:13)
[2020-06-05] MEDS: PANTOPRAZOLE 40 MG VIAL IV SCH (09:13)
[2020-06-05] MEDS: OMEGA 3 ACID ETHYL ESTERS 1 GM CAPSULE PO SCH (09:13)
[2020-06-05] MEDS: ENOXAPARIN 40 MG/0.4 ML SYRINGE SUBCUT SCH (09:39)
[2020-06-05 11:55] VITALS: BP 151/93
== END 2020-06-05 15:13 | disposition home or self-care (01) | DRG 341 ==
LOC: N.5E
PROVIDERS: ADMIT Family Medicine; ATTEND Family Medicine